=== PATIENT | female | born 1990 | race Two or more races ===

== ENCOUNTER 2021-08-31 11:56 | Emergency (ER) | payer OTHER ==
[~2021-08-31] VITALS: Ht 154.9 cm; Wt 72.1 kg
[2021-08-31] MEDS ORDERED: PROM1SOL4 PO (12:42)
[2021-08-31] MEDS ORDERED: AZIT500T66 PO (12:42)
[2021-08-31] MEDS ORDERED: METH4PAK PO (12:42)
[2021-08-31 12:45] VITALS: BP 129/80
== END 2021-08-31 13:01 | disposition home or self-care (01) ==
LOC: ER 11:56
DX: J40 Bronchitis, not specified as acute or chronic (principal); J02.9 Acute pharyngitis, unspecified
CPT/HCPCS: 71046